=== PATIENT | female | born 1995 | race Caucasian/White ===

== ENCOUNTER 2019-03-25 17:21 | Emergency (ER) | payer OTHER ==
[~2019-03-25] VITALS: Ht 147.3 cm; Wt 57.3 kg
[2019-03-25 17:41] VITALS: BP 135/78
--- NOTE | 2019-03-25 17:47 | NUR ---
Carolina mao in [facility] - 03/25/19 at 1748 by RICHELLE PT AMBULATED TO [facility] AT THIS TIME, [facility].
[2019-03-25 17:54] VITALS: BP 111/66
[2019-03-25 17:55] VITALS: BP 111/66
--- NOTE | 2019-03-25 18:13 | NUR ---
PT. AMBULATED TO ER BED 12
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
--- NOTE | 2019-03-25 19:18 | NUR ---
REPORT GIVEN TO SETH BA
--- NOTE | 2019-03-25 20:00 | NUR ---
PATIENT ELOPED FROM FACILITY. DISCHARGE INSTRUCTIONS NOT GIVEN TO PATIENT. DR. GLASS NOTIFIED.
[2019-03-25] MEDS ORDERED: IBUPROFEN 800 MG TAB ONE (22:05)
== END 2019-03-25 20:00 | disposition left against medical advice (07) ==
LOC: MED 17:21
DX: R45.6 Violent behavior (principal); F90.9 Attention-deficit hyperactivity disorder, unspecified type; F20.9 Schizophrenia, unspecified; F98.8 Other specified behavioral and emotional disorders with onset usually occurring in childhood and adolescence; Z76.0 Encounter for issue of repeat prescription
CPT/HCPCS: 99281